=== PATIENT | male | born 1965 | race Caucasian/White ===

== ENCOUNTER → 2024-04-12 06:39 | Outpatient (REF) | payer OTHER, SELFPAY | LOC: RAD 06:39 | PROVIDERS: ATTENDING PHYSICIAN Internal Medicine | DX: Z00.00 Encounter for general adult medical examination without abnormal findings (principal); M79.2 Neuralgia and neuritis, unspecified; I73.9 Peripheral vascular disease, unspecified | CPT/HCPCS: 93925 ==

== ENCOUNTER 2024-06-26 06:36 | Day surgery (SDC) | payer OTHER, SELFPAY | END 2024-06-26 09:17 | disposition home or self-care (01) | LOC: GI 06:36 | PROVIDERS: ATTENDING PHYSICIAN Internal Medicine Gastroenterology | DX: Z12.11 Encounter for screening for malignant neoplasm of colon (principal); R19.5 Other fecal abnormalities; K64.8 Other hemorrhoids; D49.0 Neoplasm of unspecified behavior of digestive system; D12.0 Benign neoplasm of cecum; D12.5 Benign neoplasm of sigmoid colon; D12.8 Benign neoplasm of rectum | CPT/HCPCS: 45385; 45380; 88305 ==

== ENCOUNTER 2024-08-02 06:20 | Day surgery (SDC) | payer OTHER, SELFPAY ==
[2024-08-02 06:54] VITALS: BP 164/98
[2024-08-02 07:05] VITALS: BMI 31.5
[2024-08-02 07:06] VITALS: BMI 31.5
[2024-08-02 08:40] VITALS: BP 110/80
[2024-08-02 08:57] VITALS: BP 137/82
[2024-08-02 09:10] VITALS: BP 139/87
== END 2024-08-02 09:29 | disposition home or self-care (01) ==
LOC: GI 06:20
PROVIDERS: ATTENDING PHYSICIAN Internal Medicine Gastroenterology
DX: D12.8 Benign neoplasm of rectum (principal); K57.30 Diverticulosis of large intestine without perforation or abscess without bleeding; K64.0 First degree hemorrhoids
CPT/HCPCS: 45349; 88305